=== PATIENT | male | born 1985 | race Caucasian/White ===

== ENCOUNTER 2016-07-23 12:07 | Emergency (ER) | payer SELFPAY ==
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
[2016-07-23 14:13] VITALS: BP 128/77
== END 2016-07-23 14:43 | disposition home or self-care (01) ==
LOC: ED 12:07
DX: L03.90 Cellulitis, unspecified (principal); R60.0 Localized edema; F17.210 Nicotine dependence, cigarettes, uncomplicated
CPT/HCPCS: 99281

== ENCOUNTER 2016-08-17 18:03 | Emergency (ER) | payer SELFPAY ==
[2016-08-17 18:12] VITALS: BP 129/81
[2016-08-17] MEDS ORDERED: Bacitracin OINTMENT* 1 TUBE TOPICAL ONE (19:16)
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
== END 2016-08-17 19:42 | disposition home or self-care (01) ==
LOC: ED 18:03
DX: T25.211D Burn of second degree of right ankle, subsequent encounter (principal); X19.XXXD Contact with other heat and hot substances, subsequent encounter
CPT/HCPCS: 99281

== ENCOUNTER 2016-09-21 15:46 | Emergency (ER) | payer SELFPAY ==
[2016-09-21 17:35] VITALS: BP 136/79
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
== END 2016-09-21 17:37 | disposition home or self-care (01) ==
LOC: ED 15:46
DX: S13.9XXA Sprain of joints and ligaments of unspecified parts of neck, initial encounter (principal); F41.9 Anxiety disorder, unspecified; F17.210 Nicotine dependence, cigarettes, uncomplicated; V49.9XXA Car occupant (driver) (passenger) injured in unspecified traffic accident, initial encounter; Y93.9 Activity, unspecified; Y92.9 Unspecified place or not applicable; Y99.9 Unspecified external cause status
CPT/HCPCS: 99281

== ENCOUNTER 2018-01-10 16:39 | Emergency (ER) | payer SELFPAY ==
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
[2018-01-10] MEDS ORDERED: Penicillin VK TAB* 250 MG PO ONE (17:59)
[2018-01-10 18:12] VITALS: BP 124/76
== END 2018-01-10 18:11 | disposition home or self-care (01) ==
LOC: ED 16:39
DX: K08.89 Other specified disorders of teeth and supporting structures (principal); K02.9 Dental caries, unspecified; F17.210 Nicotine dependence, cigarettes, uncomplicated
CPT/HCPCS: 99282; A9270-GY

== ENCOUNTER 2018-04-30 15:41 | Emergency (ER) | payer SELFPAY ==
[2018-04-30 15:46] VITALS: BP 118/87
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
== END 2018-04-30 16:26 | disposition home or self-care (01) ==
LOC: ED 15:41
DX: K02.9 Dental caries, unspecified (principal); F17.210 Nicotine dependence, cigarettes, uncomplicated
CPT/HCPCS: 99281

== ENCOUNTER 2018-05-07 15:07 | Emergency (ER) | payer SELFPAY ==
[2018-05-07] MEDS ORDERED: Clindamycin CAP* 150 MG PO ONE (15:53)
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
[2018-05-07 16:31] VITALS: BP 148/82
== END 2018-05-07 16:29 | disposition home or self-care (01) ==
LOC: ED 15:07
DX: L03.114 Cellulitis of left upper limb (principal); R60.9 Edema, unspecified; R21 Rash and other nonspecific skin eruption; F17.210 Nicotine dependence, cigarettes, uncomplicated
CPT/HCPCS: 99282; A9270-GY

== ENCOUNTER 2018-05-25 17:51 | Emergency (ER) | payer SELFPAY ==
[2018-05-25] MEDS ORDERED: Clindamycin CAP* 150 MG PO ONE (20:04)
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
[2018-05-25 20:22] VITALS: BP 138/69
== END 2018-05-25 20:18 | disposition home or self-care (01) ==
LOC: ED 17:51
DX: L03.114 Cellulitis of left upper limb (principal); F90.9 Attention-deficit hyperactivity disorder, unspecified type; F17.210 Nicotine dependence, cigarettes, uncomplicated
CPT/HCPCS: 99282; A9270-GY

== ENCOUNTER 2018-10-21 16:55 | Emergency (ER) | payer SELFPAY ==
[2018-10-21] MEDS ORDERED: Cephalexin CAP* 500 MG PO ONE (18:12)
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
[2018-10-21 18:39] VITALS: BP 120/66
== END 2018-10-21 18:38 | disposition home or self-care (01) ==
LOC: ED 16:55
DX: M79.89 Other specified soft tissue disorders (principal); F17.210 Nicotine dependence, cigarettes, uncomplicated
CPT/HCPCS: 99282; A9270-GY

== ENCOUNTER 2019-01-02 16:10 | Emergency (ER) | payer SELFPAY ==
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
[2019-01-02] MEDS ORDERED: Sulfamethox/Trimethoprim DS 800/160* TAB PO ONE (17:07)
[2019-01-02 17:39] VITALS: BP 119/75
== END 2019-01-02 17:38 | disposition home or self-care (01) ==
LOC: ED 16:10
DX: L03.90 Cellulitis, unspecified (principal); R60.9 Edema, unspecified; F41.9 Anxiety disorder, unspecified; F90.9 Attention-deficit hyperactivity disorder, unspecified type; F32.9 Major depressive disorder, single episode, unspecified; F43.10 Post-traumatic stress disorder, unspecified; F17.210 Nicotine dependence, cigarettes, uncomplicated
CPT/HCPCS: 99282; A9270-GY

== ENCOUNTER 2021-09-16 11:12 | Inpatient (IN) ==
[2021-09-16 14:39] LABS: Hematocrit 39 % (42-52); Hemoglobin 13.2 g/dL (14.0-18.0); Mean Corpuscular HGB Conc 34 g/dL (31-36); Mean Corpuscular Hemoglobin 31 pg (27-31); Mean Corpuscular Volume 91 fL (80-94); Mean Platelet Volume 9.1 fL (7.4-10.4); Platelet Count 364 10^3/uL (150-450); Red Blood Count 4.29 10^6 /uL (4.18-5.48); Red Cell Distribution Width 14 % (10-15); White Blood Count 22.4 10^3/uL (3.5-10.8)
[2021-09-16 15:09] LABS: ABS Basophils 0.2 10^3/ul (0-0.2); ABS Eosinophils 0.2 10^3/ul (0-0.6); ABS Lymphocytes 2.2 10^3/ul (1.0-4.8); ABS Monocytes 2.3 10^3/ul (0-0.8); ABS Neutrophils 17.5 10^3/ul (1.5-7.7); Eosinophil % 0.9 %; Lymphocyte % 9.7 %
[2021-09-16 15:51] LABS: ALT 29 U/L (7-52); AST 16 U/L (13-39); Albumin 3.5 g/dL (3.2-5.2); Albumin/Globulin Ratio 0.9 (1-3); Alkaline Phosphatase 145 U/L (35-149); Anion Gap 9 mmol/L (2-11); Blood Urea Nitrogen 15 mg/dL (6-24); CO2 Carbon Dioxide 26 mmol/L (22-32); Calcium 8.9 mg/dL (8.6-10.3); Chloride 102 mmol/L (101-111); Globulin 4.1 g/dL (2-4); Glucose 105 mg/dL (70-100); Lipase 10 U/L (11.0-82.0); Potassium 4.2 mmol/L (3.5-5.0); Sodium 137 mmol/L (135-145); Total Protein 7.6 g/dL (6.4-8.9); eGFR CKD-EPI 123.2 (>60)
[2021-09-16] MEDS ORDERED: cefTRIAXone 1 gm/50 mL D5W 1 GM/50 ML BAG IV ONE (16:23)
[2021-09-16] MEDS ORDERED: Ondansetron 4 mg VIAL 2 MG/ML 2 ml VIAL IV PRN (17:34)
[2021-09-16] MEDS ORDERED: Acetaminophen IV 1 GM/100ML 100 ML IV SCH (17:45)
[2021-09-16 18:15] LABS: Amylase 15 U/L (29-103); Cholesterol 135 mg/dL; HDL Cholesterol 22.9 mg/dL; LDL Cholesterol 84 mg/dL; Total Iron Binding Capacity 216 mcg/dL (250-450); Transferrin 154 mg/dL (203-362); Triglycerides 140 mg/dL
[2021-09-16] MEDS: Acetaminophen IV 1 GM/100ML 100 ML IV SCH (18:23)
[2021-09-16 18:34] LABS: Ferritin 455.1 ng/mL (24-336)
[2021-09-16 18:37] LABS: % Iron Saturation 9 % (15-55); Iron < 20 ug/dL (50-212); Unsaturated Iron Binding 196 ug/dL
[2021-09-16] MEDS: metroNIDAZOLE IV 500 MG/100ML 500 MG/100 ML BAG IVPB SCH (19:30)
[2021-09-16 20:17] LABS: Urine Appearance Cloudy; Urine Bilirubin 1+ (Negative); Urine Blood Negative (Negative); Urine Color Amber; Urine Glucose Negative (Negative); Urine Ketones Negative (Negative); Urine Nitrite Negative (Negative); Urine Protein 2+(100 mg/dL) (Negative); Urine Specific Gravity 1.053 (1.002-1.030); Urine Urobilinogen Positive (Negative)
[2021-09-16 20:25] LABS: Urine Bacteria 1+ (Absent); Urine Red Blood Cell 3+(>10/hpf) (Absent); Urine Squamous Epithelial Cell Present (Absent); Urine White Blood Cell 1+(6-10/hpf) (Absent)
[2021-09-16] MEDS: Nicotine PATCH 14 MG/24 HR PATCH TRANSDERM SCH (20:46)
[2021-09-16] MEDS: Lactated Ringers 1000 ml BAG 1,000 ML IV SCH (20:46)
[2021-09-16] MEDS ORDERED: Heparin 5000 UNITS/ML 1 mL VIAL SUBCUT SCH (22:00)
[2021-09-16] MEDS ORDERED: Calcium Carb (TUMS) 500 mg CHEW TAB PO PRN (23:52)
[2021-09-17] MEDS: Buprenorp/Nalox 4-1 MG FILM SL FILM SCH ×3 (00:05→22:57)
[2021-09-17] MEDS: Acetaminophen IV 1 GM/100ML 100 ML IV SCH ×5 (00:39→22:56)
[2021-09-17] MEDS: metroNIDAZOLE IV 500 MG/100ML 500 MG/100 ML BAG IVPB SCH ×3 (01:53→18:27)
[2021-09-17] MEDS: Lactated Ringers 1000 ml BAG 1,000 ML IV SCH ×3 (05:57→20:46)
[2021-09-17] MEDS: Nicotine PATCH 14 MG/24 HR PATCH TRANSDERM SCH (07:28)
[2021-09-17] MEDS ORDERED: cefTRIAXone 1 gm/50 mL D5W 1 GM/50 ML BAG IV SCH (07:30)
[2021-09-17 10:28] LABS: Hematocrit 36 % (42-52); Mean Corpuscular HGB Conc 33 g/dL (31-36); Mean Corpuscular Hemoglobin 30 pg (27-31); Mean Corpuscular Volume 92 fL (80-94); Mean Platelet Volume 9.3 fL (7.4-10.4); Platelet Count 341 10^3/uL (150-450); Red Blood Count 3.93 10^6 /uL (4.18-5.48); Red Cell Distribution Width 13 % (10-15)
[2021-09-17 10:34] LABS: ABS Basophils 0.1 10^3/ul (0-0.2); ABS Eosinophils 0.2 10^3/ul (0-0.6); ABS Lymphocytes 1.9 10^3/ul (1.0-4.8); ABS Monocytes 1.6 10^3/ul (0-0.8); ABS Neutrophils 12.2 10^3/ul (1.5-7.7); Lymphocyte % 12.1 %
[2021-09-17 11:36] LABS: Albumin/Globulin Ratio 0.8 (1-3); Calcium 8.4 mg/dL (8.6-10.3); Globulin 3.8 g/dL (2-4); Magnesium 2.1 mg/dL (1.9-2.7); Total Bilirubin 0.8 mg/dL (0.2-1.0); Total Protein 6.8 g/dL (6.4-8.9); eGFR CKD-EPI 128.5 (>60)
[2021-09-17 11:38] LABS: Carcinoembryonic Antigen 3.3 ng/mL (0.1-5.0)
[2021-09-17] MEDS: cefTRIAXone 1 gm/50 mL D5W 1 GM/50 ML BAG IV SCH (17:13)
[2021-09-18] MEDS: metroNIDAZOLE IV 500 MG/100ML 500 MG/100 ML BAG IVPB SCH ×3 (02:35→20:00)
[2021-09-18] MEDS: Acetaminophen IV 1 GM/100ML 100 ML IV SCH ×3 (06:36→21:38)
[2021-09-18 07:13] LABS: ABS Eosinophils 0.3 10^3/ul (0-0.6); ABS Lymphocytes 1.9 10^3/ul (1.0-4.8); ABS Monocytes 0.6 10^3/ul (0-0.8); ABS Neutrophils 4.7 10^3/ul (1.5-7.7); Eosinophil % 3.7 %; Hematocrit 36 % (42-52); Hemoglobin 12.1 g/dL (14.0-18.0); Lymphocyte % 24.8 %; Mean Corpuscular HGB Conc 34 g/dL (31-36); Mean Corpuscular Hemoglobin 31 pg (27-31); Mean Corpuscular Volume 93 fL (80-94); Platelet Count 307 10^3/uL (150-450); Red Blood Count 3.89 10^6 /uL (4.18-5.48); Red Cell Distribution Width 13 % (10-15); White Blood Count 7.5 10^3/uL (3.5-10.8)
[2021-09-18 07:49] LABS: Albumin 2.8 g/dL (3.2-5.2); CO2 Carbon Dioxide 23 mmol/L (22-32); Calcium 8.5 mg/dL (8.6-10.3); Chloride 106 mmol/L (101-111); Magnesium 2.1 mg/dL (1.9-2.7); Sodium 138 mmol/L (135-145)
[2021-09-18 07:55] LABS: ALT 21 U/L (7-52); Albumin/Globulin Ratio 0.8 (1-3); Alkaline Phosphatase 118 U/L (35-149); Blood Urea Nitrogen 11 mg/dL (6-24); Globulin 3.7 g/dL (2-4); Glucose 78 mg/dL (70-100); Total Protein 6.5 g/dL (6.4-8.9); eGFR CKD-EPI 129.8 (>60)
[2021-09-18 08:04] LABS: Anion Gap 9 mmol/L (2-11)
[2021-09-18] MEDS: Buprenorp/Nalox 4-1 MG FILM SL FILM SCH ×2 (08:28→21:37)
[2021-09-18] MEDS: Nicotine PATCH 14 MG/24 HR PATCH TRANSDERM SCH (08:28)
[2021-09-18] MEDS: cefTRIAXone 1 gm/50 mL D5W 1 GM/50 ML BAG IV SCH (17:04)
[2021-09-19] MEDS: metroNIDAZOLE IV 500 MG/100ML 500 MG/100 ML BAG IVPB SCH ×2 (02:36→10:10)
[2021-09-19] MEDS: Acetaminophen IV 1 GM/100ML 100 ML IV SCH (05:30)
[2021-09-19] MEDS: Buprenorp/Nalox 4-1 MG FILM SL FILM SCH (07:53)
[2021-09-19] MEDS: Nicotine PATCH 14 MG/24 HR PATCH TRANSDERM SCH (07:54)
[2021-09-19] MEDS ORDERED: Nicotine GUM 2MG FRUIT FLAVOR PO PRN (08:01)
[2021-09-19] MEDS ORDERED: Bacitracin OINTMENT TUBE TOPICAL SCH (09:00)
[2021-09-19 11:27] VITALS: BP 119/76
[2021-09-19] MEDS ORDERED: PEG 3000 GI LAVAGE 1 GALLON PO ONE (15:00)
== END 2021-09-19 12:35 | disposition left against medical advice (07) | DRG 249 ==
LOC: ED 11:12 → EDHOLD 17:34 → SUATTDRO 17:34 → EDHOLD 22:56 → MED 23:21
PROVIDERS: ADMIT Internal Medicine; ATTEND Internal Medicine